=== PATIENT | male | born 1985 | race Caucasian/White ===

== ENCOUNTER 2017-08-18 11:05 | Emergency (ER) | payer SELFPAY ==
[2017-08-18 11:20] VITALS: BP 191/118
[2017-08-18 11:56] LABS: BILIRUBIN,URINE NEGATIVE (NEGATIVE)
[2017-08-18 11:58] LABS: UA w/ MICROSCOPIC CHARGE YES
[2017-08-18 12:10] LABS: UR CULTURE IF IND NOT INDICATED; WBC,URINE 0-3 /HPF (0-3)
--- NOTE | 2017-08-18 13:35 | Ultrasound Report ---
SCROTAL DUPLEX: 08/18/2017 CLINICAL INDICATION: Right-sided pain. TECHNIQUE: Real-time sonographic vascular imaging was performed by the office helper clerical through the scrotu m utilizing both color-flow and Doppler spectral analysis. Multiple financial services representative static images wer e saved for review. FINDINGS: The right testicle measures 4.8 x 2.8 x 2.3 cm, and the left testicle measures 4.7 x 3.0 x 2.2 cm. The testicles demonstrate normal and symmetric echotexture and flow. No hydrocele, varicocel e, or hernia is identified. The right epididymis is unremarkable. A 4 mm cyst is incidentally noted i n the left epididymis, and tiny tunical calcifications are seen bilaterally. IMPRESSION: NORMAL SCROTAL DUPLEX. JOB #: [id number] EXT JOB #:[id number]
[2017-08-18] MEDS ORDERED: cefTRIAXone 250 MG VIAL IM STA (13:47)
[2017-08-18] MEDS ORDERED: AZITHROMYCIN 250 MG TABLET PO STA (13:48)
--- NOTE | 2017-08-18 13:57 | ED Physician Documentation ---
History of Present Illness - Stated complaint Stated Complaint: MALE - Chief complaint Chief Complaint: General - History obtained from History obtained from: Patient (Pt states that for the past several days the pt has had R>L testicular fullness and pain. last night had some abdominal pain which made his testicular pain worse. No fevers, no Hx of STD, only has one partner.) Review of Systems Constitutional: denies: Fever, Chills Eyes: denies: Loss of vision, Discharge Ears: denies: Drainage/discharge Throat: denies: Dental pain / toothache, Sore throat, Swollen tonsils Cardiac: denies: Chest pain / pressure, Palpitations, Pedal edema Respiratory: denies: Dyspnea, Cough GI: reports: Abdominal Pain, Nausea. denies: Constipation : reports: Testicular pain. denies: Dysuria, Frequency, Testicular mass Skin: denies: Rash, Lesions Musculoskeletal: denies: Neck pain, Back pain Neurologic: denies: Generalized weakness PD PAST MEDICAL HISTORY - Past Medical History Past Medical History: No - Past Surgical History Past Surgical History: Yes HEENT: Tonsil/Adenoidectomy - Allergies Allergies/Adverse Reactions: Allergies Allergy/AdvReac Type Severity Reaction Status Date / Time codeine Allergy Unknown Verified 08/18/17 11:21 Penicillins Allergy Unknown Verified 08/18/17 11:21 - Social History Does the pt smoke?: No Smoking Status: Never smoker Does the pt drink ETOH?: No Does the pt have substance abuse?: No - Immunizations Immunizations are current?: Yes PD ED PE NORMAL - Vitals Vital signs reviewed: Yes - General General: Alert and oriented X 3, Other - HEENT HEENT: PERRL, Moist mucous membranes - Neck Neck: Supple, no meningeal sign - Cardiac Cardiac: RRR, No murmur, No gallop - Respiratory Respiratory: No respiratory distress, Clear bilaterally - Abdomen Abdomen: Normal bowel sounds, Soft, Non tender, Non distended - Rectal Rectal: Deferred - Derm Derm: Normal color, Warm and dry, No rash - Extremities Extremities: No deformity - Neuro Neuro: Alert and oriented X 3 Eye Opening: Spontaneous Motor: Obeys Commands Verbal: Oriented GCS Score: 15 - Psych Psych: Normal mood, Normal affect PD ED PE EXPANDED - Male Male : Circumcised, Testes descended reggie, Normal lie/cremastaric, Tenderness ( Right sided epidymnitis). No: Skin lesions, Discharge, Testicular Mass Results - Vitals Vitals: Vital Signs - 24 hr 08/18/17 11:16 Temperature 36.8 C Heart Rate 122 H Respiratory 20 Rate Blood Pressure 191/118 H O2 Saturation 97 Oxygen O2 Source Room air - Labs Labs: Laboratory Tests 08/18/17 11:47 Urine Color YELLOW Urine Clarity CLEAR Urine pH 7.0 Ur Specific [place] 1.010 Urine Protein 30 H Urine Glucose (UA) NEGATIVE Urine Ketones NEGATIVE Urine Occult Blood NEGATIVE Urine Nitrite NEGATIVE Urine Bilirubin NEGATIVE Urine Urobilinogen 0.2 (NORMAL) Ur Leukocyte Esterase NEGATIVE Urine RBC 0-5 Urine WBC 0-3 Ur Squamous Epith Cells NONE SEEN Urine Bacteria None Seen Ur Microscopic Review INDICATED Urine Culture Comments NOT INDICATED - Rads (name of study) Testicular US Radiology: Prelim report reviewed PD MEDICAL DECISION MAKING - ED course Complexity details: d/w patient ED course: Pt with tenderness to the right epidymitis. US neg, US neg. discussed treatment for STD's here in the ER and pt at first wanted the treatment then decided to try support measures and be treated at a later date if needed. Pt given return precautions. Departure - Departure Disposition: 01 Home, Self Care Clinical Impression: Epididymitis Condition: Good Instructions: ED Epididymitis Follow-Up: Primary,care provider [Other] Comments: Return to the ER for any new or worsening symptoms.
[2017-08-18] MEDS ORDERED: cefTRIAXone 250 MG VIAL ONE (13:58)
[2017-08-18] MEDS ORDERED: AZITHROMYCIN 250 MG TABLET PO ONE (13:58)
== END 2017-08-18 14:15 | disposition home or self-care (01) ==
LOC: ED 11:05
DX: N45.1 Epididymitis (principal)
CPT/HCPCS: 76870; 81001; 81003; 87086; 93975; 99283